=== PATIENT | female | born 1980 | race Two or more races ===

== ENCOUNTER 2024-06-11 10:03 | Emergency (ER) | payer OTHER ==
[~2024-06-11] VITALS: Ht 167.6 cm; Wt 96.3 kg
[2024-06-11 10:43] VITALS: BP 162/96; PULSE 91; RESP 20; TEMP 98.9; O2SAT 97
--- NOTE | 2024-06-11 11:40 | ED.PDOC ---
Eye-HPI HPI Comments This is a 44-year-old female that comes in with noticed swelling to the left upper eye for last couple of days. Thinks that could be possibly a stye they have been putting some heat on it which has helped it is getting a little bit better. Denies any foreign body or injury. Patient also is having some lower back pain with sciatica symptoms going to both legs. 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 Denies any incontinence or any other injury. Chief Complaint: Eye Problem Time Seen by MD: 11:35 Reviewed Notes: Nurses Notes, Medications, Allergies Allergies: Coded Allergies: NO KNOWN ALLERGIES (Unverified , 06/11/24) Information Source: Patient Mode of Arrival: Ambulatory Past Medical History Past Medical History (Other): Hyperlipidemia Surgical History: Social History Smoker: Other (vape) Alcohol: Occasionally Drugs: Denies Drug Use Lives In: Home EENTM: reports: eye pain Musculoskeletal: reports: back pain, muscle pain, muscle stiffness Physical Exam General Appearance: No Apparent Distress, Normal HEENT: Eye Lid (L) (swollen and red consistent with a stye), PERRL/EOMI, Pharynx Normal, TMs Normal Neck: Non-Tender, Normal, Normal Inspection Respiratory: Lungs Clear, None, Normal Breath Sounds Cardiovascular: Regular Rate/Rhythm Breast Exam: Deferred Gastrointestinal: Non Tender, Normal Bowel Sounds Genitalia: Deferred Pelvic: Deferred Rectal: Deferred Extremities: Normal inspection, Normal range of motion, Non-tender Neurologic: Alert, Normal Affect, Normal Mood Cerebellar Function: Normal Reflexes: NOT DONE Skin: Dry, Warm Lymphatic: No Adenopathy Was a procedure done? Was a procedure done?: No EENT DIFF Eye: Orbital Cellulits X-Ray, Labs, Meds, VS Vital Signs Date Time Temp Pulse Resp B/P (MAP) Pulse Ox O2 Delivery O2 Flow Rate FiO2 06/11/24 10:43 98.9 91 20 162/96 (118) 97 98.9 06/11/24 10:43 91 20 97 Room Air 06/11/24 10:26 98.9 91 20 162/96 (118) 97 Current Medications Medications (Trade) Dose Ordered Sig/Layne Route Start Time Stop Time Status Last Admin Ketorolac Tromethamine (Toradol Injection) 60 mg ONCE ONCE IM 06/11/24 11:45 06/11/24 11:46 DC 06/11/24 11:44 X-Ray, Labs, Meds, VS Comment Patient seen and examined by me. Patient does have a stye noted on her left upper eyelid. She has tried heat which has helped a little bit but will need antibiotics now. She is also having some low back pain consistent with sciatica. Patient will be given a shot of Toradol here and I will re-evaluate to see how she feels after. Patient felt better after the Toradol. She will be sent home with a muscle relaxer and anti-inflammatories and eye antibiotics.. I suggested alternating heat and ice as well. Time of 1ST Reevaluation: 11:51 Reevaluation 1ST: Improved Patient Education/Counseling: Diagnosis, Treatment, Prognosis, Need For Follow Up Family Education/Counseling: Diagnosis, Treatment, Prognosis, Need For Follow Up Departure 1 Departure Time of Disposition: 11:51 Impression: Primary Impression: Hordeolum externum (stye) Additional Impressions: Sciatica Low back pain Disposition: 01 HOME / SELF CARE / HOMELESS Condition: Good Additional Instructions: Continue to apply heat to your left eye Do not wear any makeup try not to rub your eye Use the eyedrops as directed Start the muscle relaxer tonight Start the Motrin tomorrow No heavy lifting or twisting e-Prescriptions Cyclobenzaprine Hcl (Cyclobenzaprine Hcl) 10 Mg Tab 10 MG PO TIDP PRN for 7 Days, #21 TAB Prov: JACEK [facility] 06/11/24 Tobramycin-Dexamethasone (Tobramycin/Dexamethasone) Dexameth Jyothi 1 DROP LEFTEYE QID for 5 Days, #5 ML Prov: JACEK FORTEP 06/11/24 Ibuprofen Micronized (Ibuprofen) 600 Mg Tab 600 MG PO Q6HPRN PRN for 5 Days, #20 TAB Prov: JACEK [facility] 06/11/24 Discharged With: Self Critical Care Note Critical Care Time?: No Stability Stability form required: No JACEK [facility] Jun 11, 2024 11:40
[2024-06-11] MEDS: KETOROLAC TROMETH 60MG/2ML VIAL IM ONE (11:44)
[2024-06-11] MEDS ORDERED: TOBRSUS34 LEFTEYE (11:56)
[2024-06-11] MEDS ORDERED: IBUP1TAB5 PO (11:56)
[2024-06-11] MEDS ORDERED: CYCL-839 PO (11:57)
== END 2024-06-11 11:58 | disposition home or self-care (01) ==
LOC: ER 10:03
DX: H00.014 Hordeolum externum left upper eyelid (principal); E78.5 Hyperlipidemia, unspecified; F17.290 Nicotine dependence, other tobacco product, uncomplicated; Z98.890 Other specified postprocedural states
CPT/HCPCS: 96372; 99283; J1885